=== PATIENT | male | born 2000 | race African-American/Black ===

== ENCOUNTER 2025-04-26 16:05 | Emergency (ER) | payer OTHER ==
[~2025-04-26] VITALS: Ht 185.4 cm; Wt 83.9 kg
[2025-04-26 17:18] LABS: PLATELET COUNT (AUTO) 259 K/uL (150-450); RED BLOOD CELL COUNT(AUTO) 5.17 MIL/uL (4.5-6.0); RED CELL DISTRIBUTION WIDTH 13.3 % (11.5-15.0); WHITE BLOOD COUNT (AUTO) 9.6 K/uL (4.3-11.0)
[2025-04-26 17:31] LABS: CALCIUM, SERUM 9.4 mg/dL (8.5-10.1); CREATININE 1.1 mg/dL (0.6-1.3); SODIUM SERUM 136.0 mmol/L (136-145); UREA NITROGEN, BLOOD 6.0 mg/dL (7-18)
[2025-04-26 17:51] LABS: ASPARTATE AMINOTRANSFERASE 30.0 U/L (15-37); TOTAL PROTEIN, SERUM 8.0 g/dL (6.4-8.2)
[2025-04-26 18:18] VITALS: BP 155/78; TEMP 98.5; O2SAT 98
== END 2025-04-26 18:18 | disposition home or self-care (01) ==
LOC: ER 16:10
DX: R20.2 Paresthesia of skin (principal)
CPT/HCPCS: 36415; 80053-TC; 83735-TC; 84439-TC; 84443-TC; 85025-TC